=== PATIENT | male | born 1960 | race Caucasian/White ===

== ENCOUNTER 2017-08-14 09:36 | Emergency (ER) | END 2017-08-14 10:15 | disposition home or self-care (01) ==

== ENCOUNTER 2018-06-05 11:06 | Emergency (ER) | payer OTHER ==
[~2018-06-05] VITALS: Ht 170.2 cm; Wt 75.0 kg
[~2018-06-05 11:06] MED LIST: ACET500C5 PO; AMOX1TAB10 PO; AMOX500C2 PO; CETI10CA PO; CETI10TA19 PO; DENIES; FAMO40OR2 PO; FLUT9.9S NASAL; GUAI5SYR2 PO; IBUP-1542 PO; OFLO5DRO7 BOTH EARS
[2018-06-05 11:14] VITALS: BP 153/99; PULSE 74; RESP 19; Ht 170.2 cm; Wt 75.0 kg
[2018-06-05] MEDS ORDERED: KETOROLAC 60 MG INJ IM STA (12:12)
[2018-06-05] MEDS ORDERED: NAPR-985 PO (12:15)
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
== END 2018-06-05 12:42 | disposition home or self-care (01) ==
LOC: FTE 11:06
DX: R51 Headache (principal); Z87.891 Personal history of nicotine dependence
CPT/HCPCS: 96372; J1885; Z7502

== ENCOUNTER 2018-08-07 10:46 | Emergency (ER) | payer OTHER ==
[~2018-08-07] VITALS: Ht 165.1 cm; Wt 75.9 kg
[~2018-08-07 10:46] MED LIST changes: +NAPR-985 PO
[2018-08-07 10:47] VITALS: BP 163/99; PULSE 76; RESP 20; Ht 165.1 cm; Wt 75.9 kg
[2018-08-07] MEDS ORDERED: KETOROLAC 60 MG INJ IM STA (11:19)
[2018-08-07] MEDS ORDERED: METHYLPREDNISOLONE 125 MG INJ IM ONE (11:30)
[2018-08-07] MEDS ORDERED: CYCLOBENZAPRINE 10 MG TAB PO ONE (11:30)
[2018-08-07] MEDS ORDERED: MED4DP PO (11:41)
[2018-08-07] MEDS ORDERED: NAPR-985 PO (11:41)
[2018-08-07] MEDS ORDERED: CYCL10TA7 PO (11:41)
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
== END 2018-08-07 12:03 | disposition home or self-care (01) ==
LOC: FTE 10:46
DX: M54.5 Low back pain (principal); Z87.891 Personal history of nicotine dependence
CPT/HCPCS: 96372; J1885; J2930; Z7502; Z7610